=== PATIENT | male | born 1950 | race Caucasian/White ===

== ENCOUNTER 2024-03-24 07:13 | Emergency (ER) | payer OTHER ==
[2024-03-24] MEDS ORDERED: Ondansetron PF 4 MG/2 ML Vial ONE (08:07)
[2024-03-24] MEDS ORDERED: HYDROmorphone 0.5 MG/0.5 ML SYRINGE ONE (08:07)
[2024-03-24 08:36] LABS: #Basophils 0.02 10x3/uL (0.0-0.2); #Eosinphils 0.19 10x3/uL (0.0-0.5); #Monocytes 0.82 10x3/uL (0.0-1.1); %Basophils 0.3 % (0.0-2.0); %Eosinophils 2.4 % (0.0-6.0); %Lymphocytes 14.5 % (18.0-47.0); %Monocytes 10.5 % (0.0-10.0); Hematocrit 45.8 % (38.8-50.0); Hemoglobin 15.5 g/dL (13.5-17.5); Mean Corpuscular HGB CONC 33.8 g/dL (32.0-36.0); Mean Corpuscular Hemoglobin 30.7 pg (27.0-33.0); Mean Corpuscular Volume 90.7 fL (81.2-95.1); Mean Platelet Volume 8.9 fL (7.4-10.4); Platelet Count 212 10x3/uL (150-450); RBC Distribution Width 12.7 % (11.5-14.5); Red Blood Cell (RBC) Count 5.05 10x6/uL (4.32-5.72); White Blood Cell (WBC) Count 7.8 10x3/uL (3.5-10.5)
[2024-03-24 08:56] LABS: ALT (SGPT) 23 U/L (8-55); AST (SGOT) 18 U/L (5-34); Albumin 3.8 g/dL (3.4-4.8); Alkaline Phosphatase 80 U/L (40-110); Anion Gap 18 mmol/L (10-20); BUN (Urea Nitrogen) 15 mg/dL (8.4-25.7); Bilirubin, Total 0.3 mg/dL (0.2-1.2); Calc. Creatinine Clearance 0 mL/min (70-130); Calcium 10.3 mg/dL (7.8-10.44); Carbon Dioxide 19 mmol/L (23-31); Chloride 108 mmol/L (98-107); Estimated GFR 46; Globulin 3.8 g/dL (2.4-3.5); Glucose 98 mg/dL (83-110); Lipase 102 U/L (8-78); Potassium 3.9 mmol/L (3.5-5.1); Protein, Total 7.6 g/dL (5.8-8.1); Sodium 141 mmol/L (136-145)
[2024-03-24] MEDS ORDERED: Iopamidol 300 61% 100 ML VIAL FS ONE (11:00)
[2024-03-24 12:09] LABS: Bilirubin Neg (Negative); Blood, Urine Negative (Negative); Clarity Clear (Clear); Glucose, Urine (Dipstick) >=1000 mg/dL (Negative); Ketone, Urine Negative (Negative); Leukocyte Negative (Negative); Nitrite Negative (Negative); Protein, Urine (Dipstick) 30 mg/dl (Neg-Trace); Urobilinogen Normal mg/dL (Less than 2)
[2024-03-24 12:22] LABS: Bacteria/HPF None Seen HPF (None Seen); CAUTI Indications for Culture Pelvic or flank pain; RBC/HPF None Seen HPF (0-3); WBC/HPF 0-3 HPF (0-3)
[2024-03-24 12:25] LABS: Urine Culture Reflex No No
== END 2024-03-24 11:16 | disposition home or self-care (01) ==
LOC: CSHERS 07:13
DX: K86.2 Cyst of pancreas (principal); K76.89 Other specified diseases of liver; N17.9 Acute kidney failure, unspecified
CPT/HCPCS: 74177; 76705; 80053; 81001; 83690; 85025; 93005; J1170; J2405; 96374; 96375; Q9967